=== PATIENT | female | born 1955 ===

== ENCOUNTER → 2017-03-03 | Outpatient (CLI) | payer MEDICARE ==
[~2017-03-03] MED LIST: FLUT16H NASAL; OLAN2.5T3 PO; PSYL369P PO
[2017-03-03 13:06] VITALS: BP 106/56
== END | disposition home or self-care (01) ==
LOC: SRCNTR 13:04
PROVIDERS: ATTEND Internal Medicine
DX: M41.9 Scoliosis, unspecified (principal); Z87.891 Personal history of nicotine dependence
CPT/HCPCS: G0463

== ENCOUNTER → 2017-05-27 | Outpatient (CLI) | payer MEDICARE ==
[~2017-05-27] VITALS: Ht 147.3 cm; Wt 53.0 kg
[~2017-05-27] MED LIST changes: +HYDR120L TP
[2017-05-27 13:02] VITALS: BP 131/84
== END | disposition home or self-care (01) ==
LOC: SRCNTR 12:39
PROVIDERS: ATTEND Internal Medicine
DX: J44.9 Chronic obstructive pulmonary disease, unspecified (principal); I10 Essential (primary) hypertension; M41.9 Scoliosis, unspecified; Z87.891 Personal history of nicotine dependence
CPT/HCPCS: G0463

== ENCOUNTER → 2017-07-08 | Outpatient (CLI) | payer MEDICARE ==
[~2017-07-08] VITALS: Ht 147.3 cm; Wt 50.5 kg
[2017-07-08 14:26] VITALS: BP 122/76
== END | disposition home or self-care (01) ==
LOC: SRCNTR 14:21
PROVIDERS: ATTEND Internal Medicine
DX: J44.9 Chronic obstructive pulmonary disease, unspecified (principal); I10 Essential (primary) hypertension; M41.9 Scoliosis, unspecified
CPT/HCPCS: G0463

== ENCOUNTER → 2017-08-22 | Outpatient (CLI) | payer MEDICARE, OTHER ==
[~2017-08-22] VITALS: Ht 147.3 cm; Wt 53.5 kg
[2017-08-22 10:40] VITALS: BP 104/71
== END | disposition home or self-care (01) ==
LOC: SRCNTR 10:22
PROVIDERS: ATTEND Internal Medicine
DX: J43.9 Emphysema, unspecified (principal); I10 Essential (primary) hypertension; M41.84 Other forms of scoliosis, thoracic region
CPT/HCPCS: G0463

== ENCOUNTER → 2018-01-06 | Outpatient (CLI) | payer MEDICARE, OTHER ==
[~2018-01-06] VITALS: Ht 147.3 cm; Wt 51.5 kg
[~2018-01-06] MED LIST changes: +ALEN70TA48 PO; +COMBISP IH; +GLYC10.7 PO; +IMIP25 PO; +METO25XL PO
[2018-01-06 09:58] VITALS: BP 149/105
== END | disposition home or self-care (01) ==
LOC: SRCNTR 09:30
PROVIDERS: ATTEND Internal Medicine
DX: J44.1 Chronic obstructive pulmonary disease with (acute) exacerbation (principal); M41.9 Scoliosis, unspecified; I10 Essential (primary) hypertension
CPT/HCPCS: G0463